=== PATIENT | male | born 1950 | race Caucasian/White ===

== ENCOUNTER → 2020-10-28 | Outpatient (CLI) | payer MEDICARE ==
[~2020-10-28] MED LIST: CLARITIN10 MG PO; CLOPIDOGREL75 MG PO; DOCUSATE SODIU100 MG PO; IMDUR ER TAB 3030 MG PO; IMDUR ER TAB 6060 MG PO; LOPRESSOR 25 MG25 MG PO; NITROGLYCERIN0.4 MG SL; NITROSTAT0.4 MG SL; PRAVACHOL20 MG PO; PRAVASTATIN SOD20 MG PO
[2020-10-28 16:48] LABS: BUN/CREATININE RATIO 15 (0-10)
[2020-10-30 09:13] LABS: CREATININE, URINE 167.5 mg/dL (Not Estab.)
== END ==
LOC: LAB 14:54
PROVIDERS: Family Medicine
DX: E11.9 Type 2 diabetes mellitus without complications (principal)
CPT/HCPCS: 36415; 80053; 82043; 82570; 83036

== ENCOUNTER → 2021-02-24 | Outpatient (CLI) | payer OTHER ==
[2021-02-24 11:43] LABS: BUN/CREATININE RATIO 15 (0-10)
== END ==
LOC: LAB 10:47
PROVIDERS: Family Medicine
DX: E11.9 Type 2 diabetes mellitus without complications (principal); E78.2 Mixed hyperlipidemia
CPT/HCPCS: 36415; 80053; 80061; 83036

== ENCOUNTER → 2021-11-23 | Outpatient (CLI) | payer MEDICARE ==
[2021-11-23 13:06] LABS: HEMOGLOBIN 15.9 gm/dl (14.0-17.5); RED BLOOD COUNT 5.37 M/UL (4.20-5.50); WHITE BLOOD COUNT 6.3 K/UL (4.5-11.0)
[2021-11-23 13:50] LABS: BUN/CREATININE RATIO 17 (0-10)
[2021-11-24 10:17] LABS: CREATININE, URINE 127.7 mg/dL (Not Estab.)
== END ==
LOC: LAB 12:30
PROVIDERS: Family Medicine
DX: E11.9 Type 2 diabetes mellitus without complications (principal); E78.2 Mixed hyperlipidemia
CPT/HCPCS: 36415; 80053; 80061; 82043; 82570; 83036; 85027